=== PATIENT | male | born 1990 | race Asian ===

== ENCOUNTER 2016-12-01 17:32 | Emergency (ER) | payer OTHER ==
[2016-12-01 17:39] VITALS: BP 147/69; PULSE 60; TEMP 98.6; BMI 29.7
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
== END 2016-12-01 18:33 | disposition home or self-care (01) ==
LOC: JERFT 17:32
DX: M25.512 Pain in left shoulder (principal)
CPT/HCPCS: 99281-25

== ENCOUNTER 2016-12-02 10:14 | Day surgery (SDC) | payer OTHER ==
--- NOTE | 2016-10-28 08:57 | HP ---
[facility] - Chief Complaint Chief Complaint: left shoulder pain - Past Medical History Allergies/Adverse Reactions: Allergies Allergy/AdvReac Type Severity Reaction Status Date / Time No Known Allergies Allergy Verified 01/18/12 15:21 - Current Medications Current Medications: Home Medications Medication Instructions Recorded Hydrocodone/Acetaminophen [[place] 1 each PO Q6H PRN #40 tablet MDD 4 10/28/16 5-325 Tablet] [facility] Physical Exam - Physical Examination General Appearance: Well Nourished, Well Developed, Alert & Oriented x3 ENT: Clear Lung: Normal air movement Heart: Regular rate & rhythm Extremities: Other (left shoulder- + ttp, decr rom, + neer, + deutsch, nvi MRI + impingement) Neurological: Intact, Alert, Oriented [facility] Impression/Plan - Impression/Plan Impression: left shoulder impingement Operative Procedure: left shoulder arthroscopy SAD Date to be Performed: 10/28/16
[2016-12-01 08:42] VITALS: BMI 29.7
[2016-12-02] MEDS ORDERED: PROPOFOL 20 ML ONE ×3 (13:33)
[2016-12-02] MEDS ORDERED: MIDAZOLAM HCL 2 MG/2 ML SINGLE DOSE VIAL ONE ×3 (13:47→14:34)
[2016-12-02] MEDS ORDERED: ROPIVACAINE HCL 0.5% 30ML VIAL ONE (14:08)
[2016-12-02] MEDS ORDERED: ROCURONIUM BROMIDE 50 MG/5 ML VIAL ONE (14:11)
[2016-12-02] MEDS ORDERED: ceFAZolin SODIUM 1 GM VIAL IVPB ONE (14:57)
[2016-12-02] MEDS ORDERED: PROMETHAZINE HCL 25 MG/1 ML VIAL IVPUSH PRN (15:17)
[2016-12-02] MEDS ORDERED: ONDANSETRON 4 MG/2 ML VIAL IVPUSH PRN (15:17)
[2016-12-02] MEDS ORDERED: DEXAMETHASONE SOD PHOSPHATE 4 MG/1 ML VIAL ONE (15:25)
[2016-12-02] MEDS ORDERED: LACTATED RINGERS SOLUTION 1,000 ML IV SCH (15:30)
[2016-12-02] MEDS ORDERED: GLYCOPYRROLATE 0.2 MG/1 ML VIAL ONE (15:34)
[2016-12-02] MEDS ORDERED: NEOSTIGMINE METHYLSULFATE 0.5 MG/ML - 10 ML MDV ONE (15:34)
--- NOTE | 2016-12-02 15:44 | OP ---
Operative Note - Note: Operative Date: 12/02/16 ([facility]) Pre-Operative Diagnosis: left shoulder impingement Operation: left shoulder arthroscopy with SAD Post-Operative Diagnosis: Same as Pre-op Surgeon: Josep Paez Manager Of Operations: Larry Osuna Anesthesiologist/ENROLLMENT REPRESENTATIVE: Sergio Foy Anesthesia: General, Local Specimens Removed: shavings Estimated Blood Loss (mls): 5 Operative Report Dictated: Yes
[2016-12-02] MEDS ORDERED: ONDANSETRON 4 MG/2 ML VIAL ONE ×2 (16:06→17:19)
[2016-12-02 16:59] VITALS: TEMP 98.2
[2016-12-02] MEDS ORDERED: ONDANSETRON 4 MG/2 ML VIAL IVPB ONE (17:25)
[2016-12-02 18:24] VITALS: BP 123/68; PULSE 82
--- NOTE | 2016-12-03 11:20 | OP ---
DATE OF OPERATION: 12/02/2016 PREOPERATIVE DIAGNOSIS: Right shoulder impingement syndrome. POSTOPERATIVE DIAGNOSIS: Right shoulder impingement syndrome. PROCEDURE: Left shoulder arthroscopy, subacromial decompression. SYSTEM DEVELOPER ASSOCIATE MANAGER: PINA Sosa BLOOD LOSS: Minimal. BLOOD GIVEN: None. FLUID REPLACEMENT: 500 mL DRAINS: None. COMPLICATIONS: None. SPECIMEN: Arthroscopic shavings. INDICATION FOR PROCEDURE: This patient is a 26-year-old male with a preoperative diagnosis of left shoulder impingement syndrome. After understanding the potential risks, complications, alternatives, and benefits of surgery versus nonsurgical treatment, patient elected to undergo this procedure. DESCRIPTION OF PROCEDURE: The patient was brought to the operating room. Peripheral IV placed. IV sedation given. One gram of IV Ancef was given. A left interscalene block was performed. LMA anesthesia was induced. The patient was placed into the beach chair position with ample padding throughout. The left upper extremity was prepped in the usual sterile fashion. The bony landmarks were marked out with a marking pen. The posterior portal established. A diagnostic glenohumeral arthroscopy was performed. All the structures within the glenohumeral joint were normal. There was no arthritis. The biceps tendon, the biceps anchor, the labrum, the undersurface of the rotator cuff, everything looked good. Next, our attention turned to the subacromial space. The patient had a tremendous amount of inflammatory bursitis. A lateral portal was established under direct visualization using a spinal needle, number 10 scalpel blade, and a Green cannula was introduced into the subacromial space. The ArthroCare wand was used to do an extensive debridement/soft tissue bursectomy. There really was not any tremendous amount of inflammatory bursitis. The top surface of the rotator cuff was directly visualized and seemed to be intact. There was no rotator cuff tear. The patient had a large subacromial spur which extended to the AC joint, but the end of the clavicle looked good. Photographs were taken throughout. The 5.5-mm oval bur was then used to take down the subacromial spur. I put the bur in reverse to fine tune it. The shaver was introduced to fine tune it as well and remove all bony debris. The area was copiously irrigated and washed out. Final photographs taken. Again, there were no signs of impingement under direct visualization. All excess saline was removed. The arthroscopy portals were closed with 3-0 nylon sutures. The area was then washed and dried, covered with Aquacel dressing and a large sling. The patient was extubated. There were no complications during the case. Total operative time was about 30 minutes, and he was brought to the ambulatory recovery room in stable condition. CARO VALDOVINOS M.D. [id number]
--- NOTE | 2016-12-04 12:08 | PATH ---
Surgical Pathology Report Patient Name: MEAGHAN KAT [facility]. Rec. #: [id number] /Age/Gender: 1990 (Age: 26) / M Account: [id number] Location: [facility] SURGICAL Taken: 12/02/2016 Received: 12/03/2016 Reported: 12/04/2016 Physicians: Josep Paez M.D. Specimen(s) Received LEFT SHOULDER SHAVINGS Clinical History Left arthroscopy shoulder Final Diagnosis LEFT SHOULDER, ARTHROSCOPIC SHAVING: PORTIONS OF SYNOVIUM, CARTILAGE, SKELETAL MUSCLE AND BONE CONSISTENT WITH ARTHROSCOPIC SHAVINGS. Electronically Signed Bayron Garzon M.D. Gross Description Received in formalin, labeled "left shoulder shavings," is a 5.5 x 4.3 x 0.5 cm. aggregate of jordan-yellow soft tissue fragments. A players club representative portion is submitted in one cassette. /12/03/201612/03/2016
--- NOTE | 2016-12-09 12:57 | OP ---
DATE OF OPERATION: 12/02/2016 ADDENDUM SURGEON: Josep Paez MD VENDETTE: PINA Sosa M.D. [id number]
== END 2016-12-02 18:25 | disposition home or self-care (01) ==
LOC: JASU-SURG 10:14
PROVIDERS: ATTEND Orthopaedic Surgery
PROC: 0RBK4ZZ Excision of Left Shoulder Joint, Percutaneous Endoscopic Approach (ICD-10-PCS; principal; 2016-12-02 12:30)
DX: M75.42 Impingement syndrome of left shoulder (principal)
CPT/HCPCS: 88304-TC; 94760